=== PATIENT | female | born 1940 | race Caucasian/White ===

== ENCOUNTER → 2016-05-23 | Day surgery (SDC) | payer OTHER, MEDICARE ==
[~2016-05-23] VITALS: Ht 162.6 cm; Wt 83.5 kg
[~2016-05-23] MED LIST: ATORVASTATIN CA10 MG PO; CO Q-10 100 MG-1 SGL PO; DYAZIDE 25 MG-31 CAP PO; LIPOFLAVONOID1 TAB PO; MULTIVITAMIN1 TAB PO; NASONEX0.05 MG/Ac NASB; PERCOCET 325 MG1 TAB PO; PROBIOTIC FORMU1 CAP PO; TOLTERODINE TART4 MG PO
--- NOTE | 2016-05-23 09:15 | MAMMOGRAPHY REPORT ---
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 COMPARISON: Stereotactic biopsy dated 03/27/2016. TECHNIQUE NEEDLE LOC: Proper informed consent is obtained from the patient after discussion of the procedure, potential risks and complications, and alternatives including declining the procedure today. Patient was given an opportunity for questions. The patient appeared to understand. The patient consented to the procedure and signed the consent form. GUIDANCE: Digital mammography. APPROACH: Superior. TARGET: Biopsy clip in the 10:00 position of the left breast, 6 cm from the nipple. ANESTHESIA: 10 mL Xylocaine 2%. LOCALIZATION MARKER: Rollbar 5 cm needle localization system. The skin was prepped and local anesthesia administered. The needle was positioned and position assessed with mammography. The wire was hooked into position. The patient tolerated the procedure well and had no immediate complication. Diagram was marked for the surgeon. The target is a biopsy clip in the 10:00 position of the left breast, 6 cm from the nipple, located around the thick segment of the wire, 3 cm deep to the skin with 10.5 cm of the wire remaining external to the skin. IMPRESSION: Status post left breast needle localization with wire hooked into position. The target is a biopsy clip in the 10:00 position of the left breast, 6 cm from the nipple, located around the thick segment of the wire, 3 cm deep to the skin with 10.5 cm of the wire remaining external to the skin.
--- NOTE | 2016-05-23 13:42 | Operative Report ---
Operative/Inv Procedure Report Surgery Date: 05/23/16 Name of Procedure: Left lumpectomy with wire localization and sentinel lymph node biopsy. 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 Preoperative wire localization and litho-scintigraphy were performed and the films reviewed. She is brought to the operating room placed supine on the table. Laryngeal mask airway anesthesia was administered and the left breast was prepped and draped in sterile fashion using ChloraPrep. 3 mL of methylene blue diluted with 2 mL of saline was injected in the retroareolar fashion. The breast was approached first. Local anesthesia 1% lidocaine mixed with half percent Marcaine was given. A curvilinear incision was made in the 12 o'clock position and the wire was brought into the incision. There concern was grasped using an Allis clamp. The dissection began from the subcutaneous tissue. A lumpectomy was performed and the specimen was marked for orientation using margin map. Intraoperative x-ray confirmed the presence of the clip in the specimen. Additional margins were taken in the cranial, caudal, medial, lateral , and deep positions. Hemostasis was adequate. Clips were used to rodri the margins a lumpectomy bed. Deep tissue was approximated using interrupted Vicryl sutures and the skin was closed using a running Biosyn subcutaneous color stitch. The axilla was then approached. After administering local anesthesia a transverse incision was made in the lower axilla. The axilla was entered. A single hot lymph node was identified and excised. There were no other hot, blue , or palpable lymph nodes in the axilla. Hemostasis was adequate. Deep tissue was proximal made using interrupted Vicryl sutures, and the skin was closed using a running Biosyn subcuticular stitch. Steri-Strips and sterile dressings were applied and patient transferred to the recovery room in satisfactory condition having tolerated the procedure well.
--- NOTE | 2016-05-23 17:18 | MAMMOGRAPHY REPORT ---
EXAMINATION: MM NEEDLE LOCALIZATION SPECIMEN FROM THE BREAST, LEFT CLINICAL INDICATION: Radiograph of the excised lumpectomy specimen. Microinvasive carcinoma. COMPARISON: Needle localization films from 05/23/2016. TECHNIQUE: Single specimen radiograph was obtained. FINDINGS: The radiograph of the excised surgical specimen shows that the hookwire is delivered intact and the marker clip is identified in the specimen. IMPRESSION: Satisfactory excision of the targeted lesion. These findings were communicated to Dr. Caballero in the OR at the time of specimen radiography.
== END ==
LOC: STS 02:35 → CBW.IIU 08:00 → STS 08:00 → CBW.MAMMO 08:30
DX: D05.12 Intraductal carcinoma in situ of left breast (principal); E78.5 Hyperlipidemia, unspecified; E04.9 Nontoxic goiter, unspecified
CPT/HCPCS: 88305; 88307; A9520; J0131; J0690; J2001; J2405